=== PATIENT | female | born 1985 | race Caucasian/White ===

== ENCOUNTER 2017-11-18 19:18 | Emergency (ER) | payer OTHER ==
[~2017-11-18 19:18] MED LIST: ACET-704 PO
[2017-11-18 19:40] VITALS: BP 110/62
[2017-11-18] MEDS ORDERED: DOXY100T PO (20:26)
[2017-11-18] MEDS ORDERED: GUAI118L13 PO (20:26)
[2017-11-18] MEDS ORDERED: ALBU6.7H IH (20:26)
--- NOTE | 2017-11-18 20:28 | PHYS DOC ---
General Chief Complaint: COUGH Stated Complaint: COUGH Time Seen by MD: 19:39 Source: patient Exam Limitations: no limitations Problems: History of Present Illness Initial Comments Patient is a 32-year-old female who comes in the ED complaining of cough and right sided chest pain. Patient states that for the past few days she's had nonproductive cough with some chills, she says that she's had some violent coughing spells and feels she may have pulled a muscle. She states she has pain behind her right breast which is very localized, denies anterior left-sided chest pain no arm or neck symptoms no associated diaphoresis or nausea vomiting. She has felt overall ill denies any measured fevers at home however temperature is 100.9 here in the emergency department other vital signs are stable. Patient continues to smoke cigarettes she denies any shortness of breath or immunocompromise status and no hemoptysis. Chest x-ray and influenza swab order on arrival. Timing/Duration: getting worse, other Severity: moderate Modifying Factors: improves with other Associated Symptoms: chest pain, cough, fever/chills, malaise Allergies: Coded Allergies: No Known Drug Allergies (Unverified , 08/28/15) Past Medical History Medical History: no pertinent history Surgical History: tonsillectomy, other Family History Significant Family History: no pertinent family hx Social History Smoker: cigarettes Alcohol: occasionally Drugs: none Review of Systems Constitutional: see HPI Respiratory: see HPI Cardiovascular: see HPI, denies palpitations, denies syncope Gastrointestinal: denies diarrhea, denies nausea, denies vomiting Genitourinary: denies dysuria, denies frequency, denies hematuria Musculoskeletal: denies back pain, denies joint swelling, denies neck pain Psychiatric/Neurological: denies headache, denies numbness, denies paresthesia Hematologic/Lymphatic: denies blood clots, denies easy bleeding, denies easy bruising Physical Exam General Appearance: WD/WN, no apparent distress Ear, Nose, Throat: hearing grossly normal, normal ENT inspection Neck: non-tender, supple Respiratory: chest non-tender, no respiratory distress, other (rhonchi at the right lower lobe) Cardiovascular: normal peripheral pulses, regular rate, rhythm Gastrointestinal: non tender, soft Back: no CVA tenderness, no vertebral tenderness Extremities: non-tender, normal inspection, no pedal edema Neurologic/Psychiatric: union representative II-XII nml as tested, no motor/sensory deficits, alert, oriented x 3 Orders, Labs, Meds Chest x-ray PA and lateral: Right lower lobe infiltrate, cardiac silhouette and mediastinal structures appear normal interpreted by me. Influenza A and B are negative I discussed signs and symptoms to monitor as well as indications for urgent return to the department. Discussed smoking cessation and the departure instructions [id number] and provided them in written format. Discussed prescription and efzx-bum-[id number] medications and the patient's questions were answered she expressed agreement and understanding of treatment plan. Departure Time of Disposition: 20:26 Disposition: 01 HOME, SELF-CARE Diagnosis: right lower lobe pneumonia, tobaccoism Condition: GOOD Patient Instructions: Pneumonia, Adult, [id number], Smoking Cessation, Tips For Success Additional Instructions: Please review the patient education materials given by ED staff. Stop smoking seek medical assistance if necessary. Aggressive hydration with Gatorade or water. Mksi-gce-uqhniku Tylenol and ibuprofen as needed. Prescription: Guaifenesin with codeine syrup, doxycycline, albuterol MDI You will need to follow-up with her doctor to ensure this infection has completely cleared. ED staff can provide you a list of doctors to accept walk-in appointments, follow-up in 7-10 days for recheck. Return to ED with new or changing symptoms. DIYA SANCHEZ DO Nov 18, 2017 20:28
[2017-11-18] MEDS ORDERED: DOXYCYCLINE HYCLATE 100 MG TABLET PO ONE (20:45)
--- NOTE | 2017-11-19 08:07 | RAD ---
Chest, 2 views, 11/18/2017: History: Cough, right-sided chest pain The heart size and pulmonary vascularity are normal. There are mild bibasilar pulmonary opacities with dominant involvement of the right middle lobe. The upper lung banda are clear. There is no evidence of pleural fluid. IMPRESSION: Mild patchy bibasilar atelectasis and/or pneumonitis.
== END 2017-11-18 20:44 | disposition home or self-care (01) ==
LOC: ER 19:18
DX: J18.1 Lobar pneumonia, unspecified organism (principal); F17.210 Nicotine dependence, cigarettes, uncomplicated
CPT/HCPCS: 71046; 99284

== ENCOUNTER 2017-12-05 11:00 | Inpatient (IN) | payer OTHER ==
[~2017-12-05] VITALS: Ht 162.6 cm; Wt 81.2 kg
[~2017-12-05 11:00] MED LIST changes: +ALBU6.7H IH; +DOXY100T PO; +GUAI118L13 PO
[2017-12-05 11:39] LABS: BASO # 0.2 x10^3/uL (0.0-0.2); BASO % 1 % (0-3); EOS % 0 % (0-3); HEMATOCRIT 38.1 % (36.0-47.0); HEMOGLOBIN 12.7 g/dL (12.0-15.5); LYMPH # 0.4 x10^3/uL (1.0-4.8); LYMPH % 2 % (24-48); MEAN CORPUSCULAR HEMOGLOBIN 29 pg (25-35); MEAN CORPUSCULAR HGB CONC 33 g/dL (31-37); MEAN CORPUSCULAR VOLUME 87 fL (79-100); MONO # 0.5 x10^3/uL (0.0-1.1); MONO % 3 % (0-9); NEUT # 17.8 x10^3uL (1.8-7.7); NEUT % 94 % (31-73); PLATELET COUNT 135 x10^3/uL (140-400); RED CELL DISTRIBUTION WIDTH 15.2 % (11.5-14.5)
[2017-12-05 11:49] LABS: ALBUMIN 2.9 g/dL (3.4-5.0); ALBUMIN/GLOBULIN RATIO 0.8 (1.0-1.7); CALCIUM 8.6 mg/dL (8.5-10.1); CREATININE 0.8 mg/dL (0.6-1.0); GFR 83.7; POTASSIUM 3.5 mmol/L (3.5-5.1); TOTAL BILIRUBIN 0.7 mg/dL (0.2-1.0); TOTAL PROTEIN 6.4 g/dL (6.4-8.2)
--- NOTE | 2017-12-05 11:49 | RAD ---
Abdominal series 12/05/2017 Indication: Abdominal pain Comparison study: 2 views of the chest November 18, 2017 Findings: No pneumothorax or effusion or focal infiltrate is seen. Heart size is normal. No gross pneumoperitoneum is identified. Mildly increased stool seen throughout the colon. Correlate with evidence of constipation. The bowel gas pattern is nonspecific and nonobstructive. Changes of chronic sacroiliitis are seen on the right. No acute osseous abnormality is identified. Impression: 1. No radiographic evidence of acute cardiopulmonary abnormality. 2. Increased stool within the colon. Correlate with evidence of constipation. 3. Evidence of chronic right-sided sacroiliitis
[2017-12-05] MEDS ORDERED: IV NORMAL SALINE 1,000ML 1,000 ML IV SCH (12:01)
--- NOTE | 2017-12-05 12:06 | PHYS DOC ---
Past History Past Medical History: No Pertinent History Past Surgical History: , Other Smoking: Cigarettes, Less than 1pk/day Alcohol Use: Occasionally Drug Use: Methamphetamine Adult General Chief Complaint Chief Complaint: ABDOMINAL PAIN [facility] HPI This patient is a non 32-year-old female with a known history of prior C -section presents with abdominal pain that began at 6 PM last night. She describes the abdominal pain is diffuse crampy throughout her abdomen with no localization of the right lower quadrant. She denies any UTI symptoms, denies any vaginal bleeding or discharge denies any history of STDs. She's had hard constipated stool and nausea but no vomiting. She denies fevers or chills she said the pain is 9 of 10 at rest 10 of 10 with walking and movement. It does not radiate to her back does not change with food that she has no appetite at this time. She denies any recent sick contacts but has been treated for pneumonia within the last 3 weeks with antibiotics. She denies any travel outside the country, handling of poultry, handling of reptiles or eating raw foods. Acute pancreatitis. Appendicitis. Acute hepatitis. Peptic ulcer disease. Nonulcer dyspepsia. Irritable bowel disease. Functional gallbladder disorder. Sphincter of Oddi dysfunction. Diseases of the right kidney. Right-sided pneumonia. Hazp-Uvxp-Kvetpp syndrome Subhepatic or intraabdominal abscess. Perforated viscus. Cardiac ischemia. Black spider envenomation UTI, pyonephritis, kidney stone, abdominal aneurysm, ectopic considered as differential diagnosis Review of Systems Review of Systems Constitutional: Denies fever or chills [] Eyes: Denies change in visual acuity, redness, or eye pain [] HENT: Denies nasal congestion or sore throat [] Respiratory: Denies cough or shortness of breath [] Cardiovascular: No additional information not addressed in HPI [] GI: General this complaint of abdominal pain with nausea but no vomiting no diarrhea constipation is positive : Denies dysuria or hematuria [] Musculoskeletal: Denies back pain or joint pain [] Integument: Denies rash or skin lesions [] Neurologic: Denies headache, focal weakness or sensory changes [] Endocrine: Denies polyuria or polydipsia [] All other systems were reviewed and found to be within normal limits, except as documented in this note. Allergies Allergies Allergies Coded Allergies Type Severity Reaction Last Updated Verified No Known Drug Allergies 08/28/15 No Physical Exam Physical Exam Other vital signs recorded on the chart at this time patient did be mildly tachycardic mildly low-grade fever mildly tachypnea Constitutional: Well developed, well nourished, patient is obvious uncomfortable nontoxic in appearance[] HENT: Normocephalic, atraumatic, bilateral external ears normal, oropharynx dry mucous membranes no erythema, no oral exudates, nose normal. [] Eyes: PERRLA, EOMI, conjunctiva normal, no discharge. [] Neck: Normal range of motion, no tenderness, supple, no stridor. [] Cardiovascular: Tachycardia noted with regular rhythm no murmurs, rubs or rubs Lungs & Thorax: Bilateral breath sounds clear to auscultation [] Abdomen: Diffuse abdominal sounds hyperactive soft enters to palpation in all quadrants no specific Shah's or McBurney's point tenderness to palpation patient does have some voluntary guarding. No Martell Baker sign noted Skin: Warm, dry, no erythema, no rash. [] Back: No tenderness, no CVA tenderness. [] Extremities: No tenderness, no cyanosis, no clubbing, ROM intact, no edema. [] Neurologic: Alert and oriented X 3, normal motor function, Psychologic: She does seem somewhat anxious Current Patient Data Vital Signs Vital Signs Date Time Temp Pulse Resp B/P (MAP) Pulse Ox O2 Delivery O2 Flow Rate FiO2 12/05/17 11:00 99.5 115 22 98 Room Air Lab Results Laboratory Tests Test 12/05/17 11:22 White Blood Count 19.0 x10^3/uL (4.0-11.0) H Red Blood Count 4.40 x10^6/uL (3.50-5.40) Hemoglobin 12.7 g/dL (12.0-15.5) Hematocrit 38.1 % (36.0-47.0) Mean Corpuscular Volume 87 fL (79-100) Mean Corpuscular Hemoglobin 29 pg (25-35) Mean Corpuscular Hemoglobin Concent 33 g/dL (31-37) Red Cell Distribution Width 15.2 % (11.5-14.5) H Platelet Count 135 x10^3/uL (140-400) L Neutrophils (%) (Auto) 94 % (31-73) H Lymphocytes (%) (Auto) 2 % (24-48) L Monocytes (%) (Auto) 3 % (0-9) Eosinophils (%) (Auto) 0 % (0-3) Basophils (%) (Auto) 1 % (0-3) Neutrophils # (Auto) 17.8 x10^3uL (1.8-7.7) H Lymphocytes # (Auto) 0.4 x10^3/uL (1.0-4.8) L Monocytes # (Auto) 0.5 x10^3/uL (0.0-1.1) Eosinophils # (Auto) 0.0 x10^3/uL (0.0-0.7) Basophils # (Auto) 0.2 x10^3/uL (0.0-0.2) Platelet Estimate Pending Sodium Level 136 mmol/L (136-145) Potassium Level 3.5 mmol/L (3.5-5.1) Chloride Level 100 mmol/L (98-107) Carbon Dioxide Level 26 mmol/L (21-32) Anion Gap 10 (6-14) Blood Urea Nitrogen 9 mg/dL (7-20) Creatinine 0.8 mg/dL (0.6-1.0) Estimated GFR (Cockcroft-Gault) 83.7 BUN/Creatinine Ratio 11 (6-20) Glucose Level 116 mg/dL (70-99) H Calcium Level 8.6 mg/dL (8.5-10.1) Total Bilirubin 0.7 mg/dL (0.2-1.0) Aspartate Amino Transferase (AST) 12 U/L (15-37) L Alanine Aminotransferase (ALT) 17 U/L (14-59) Alkaline Phosphatase 78 U/L (46-116) Total Protein 6.4 g/dL (6.4-8.2) Albumin 2.9 g/dL (3.4-5.0) L Albumin/Globulin Ratio 0.8 (1.0-1.7) L EKG EKG [] Radiology/Procedures Radiology/Procedures [] [address] [address] IMAGING REPORT Signed PATIENT: KATHRYN LUNDBERG ACCOUNT: [id number] : 1985 LOCATION: ER AGE: 32 SEX: F EXAM STATUS: REG ER ORD. PHYSICIAN: RONALD JERNIGAN MD REASON: diffuse ab pain PROCEDURE: CT ABD PELV W/ IV CONTRST ONLY Examination: CT of the abdomen pelvis were performed with IV contrast History: History of abdominal pain. Comparison: None available Technique: Axial CT images of the abdomen is performed with IV contrast. Coronal and sagittal reformats are performed PQRS Compliance Statement: One or more of the following individualized dose reduction techniques were utilized for this examination: 1. Automated exposure control 2. Adjustment of the mA and/or kV according to patient size 3. Use of iterative reconstruction technique Findings: The visualized bibasal lungs are clear. No evidence of free air identified in the abdomen. The visualized liver, spleen, adrenals grossly appears unremarkable. The gallbladder is mildly distended. Stomach is mildly distended. The common bile duct appears mildly prominent measuring 7 mm in transverse dimension. The visualized pancreas grossly appears unremarkable. Small bowel is nondilated. Urinary bladder is mildly distended. The visualized appendix grossly appears unremarkable. Moderate amount of feces and gas noted throughout the colon No evidence of lytic bony destructive lesion. Bilateral kidneys enhance symmetrically. There is mild fat stranding identified in the mesentery particularly in the lower abdomen, best visualized on series 2 image #64 there is questionable minimal enhancement of the small bowel loop. Multiple cystic structure identified in the bilateral ovaries. Impression: 1. Minimal fat stranding identified in the mesentery particularly in the lower abdomen, nonspecific inflammation. Obvious etiology is not identified. There is some minimal enhancement of the wall of the small bowel in the left lower quadrant. Enteritis is not completely excluded. 2. Cystic structures identified in the bilateral ovaries probably follicles. Ultrasound pelvis may be useful. 3. Minimal prominent appearing common bile duct. Correlate with liver function tests. DICTATED AND SIGNED BY: SHANDRA VANCE MD DATE: 12/05/17 0726 CC: RONALD JERNIGAN MD; PCP,NO ~ Course & Med Decision Making Course & Med Decision Making Pertinent Labs and Imaging studies reviewed. (See chart for details) []Patient percent with diffuse abdominal pain CBC, CMP, lipase, urinalysis and test ordered. Patient acute abdominal series ordered upon arrival. Time is now 12:06 PM acute abdominal series does not show any specific air fluid levels, signs of bowel obstruction or free air. Patient's CBC demonstrates an elevated white blood cell count of 19,000 with left shift CMP is unremarkable Times now [address] scan reveals some mild mesenteric fat stranding without specific diverticular disease. Given patient's history of abdominal pain with subjective fevers and elevated white blood cell count this may represent early diverticular disease, there is no history of Crohn's, UC, or IBS at this time. Patient still having significant issues with pain and nausea. Start patient on Cipro and Flagyl and consult GI for possible evaluation EGD and colonoscopy Child And Adolescent Therapist note: Dr. Jimenez Child And Adolescent Therapist called at of the service service called at 1:15 PM Consult called back at 1:15 PM Discussed the case I presented and they agreed with admission. Time of acceptance 1:15 p.m. "I have assessed this patient clinically and believe that their condition requires an admission to the hospital. After consulting the admitting physician about this case, they have asked that I admit this patient to their service as an inpatient based on the clinical presentation and my impression." Dragon Disclaimer Dragon Disclaimer This electronic medical record was generated, in whole or in part, using a voice recognition dictation system. Departure Departure: Impression: Primary Impression: Abdominal pain Disposition: ADMITTED INPATIENT Condition: GUARDED Referrals: PCP,NO (PCP) RONALD JERNIGAN MD Dec 05, 2017 12:06
[2017-12-05] MEDS ORDERED: IOHEXOL 300 MG/ML 75 ML VIAL. IV ONE (12:15)
[2017-12-05] MEDS ORDERED: HYDROmorphone PF 1 MG/ML DISP.SYRIN IV/SQ PRN (12:15)
[2017-12-05] MEDS ORDERED: 0.9 % SODIUM CHLORIDE 10 ML DISP.SYRIN. IV PRN (12:15)
[2017-12-05] MEDS ORDERED: ONDANSETRON PF 4 MG/2 ML VIAL. IV ONE (12:15)
[2017-12-05 12:19] LABS: % BANDS 14 % (0-9); % LYMPHS 5 % (24-48); % MONOS 6 % (0-10); % SEGS 75 % (35-66)
[2017-12-05 12:20] LABS: PLATELET CLUMP PRESENT; PLT ESTIMATE ADEQUATE (ADEQUATE); TOXIC GRANULATION SLIGHT
--- NOTE | 2017-12-05 12:54 | RAD ---
Examination: CT of the abdomen pelvis were performed with IV contrast History: History of abdominal pain. Comparison: None available Technique: Axial CT images of the abdomen is performed with IV contrast. Coronal and sagittal reformats are performed PQRS Compliance Statement: One or more of the following individualized dose reduction techniques were utilized for this examination: 1. Automated exposure control 2. Adjustment of the mA and/or kV according to patient size 3. Use of iterative reconstruction technique Findings: The visualized bibasal lungs are clear. No evidence of free air identified in the abdomen. The visualized liver, spleen, adrenals grossly appears unremarkable. The gallbladder is mildly distended. Stomach is mildly distended. The common bile duct appears mildly prominent measuring 7 mm in transverse dimension. The visualized pancreas grossly appears unremarkable. Small bowel is nondilated. Urinary bladder is mildly distended. The visualized appendix grossly appears unremarkable. Moderate amount of feces and gas noted throughout the colon No evidence of lytic bony destructive lesion. Bilateral kidneys enhance symmetrically. There is mild fat stranding identified in the mesentery particularly in the lower abdomen, best visualized on series 2 image #64 there is questionable minimal enhancement of the small bowel loop. Multiple cystic structure identified in the bilateral ovaries. Impression: 1. Minimal fat stranding identified in the mesentery particularly in the lower abdomen, nonspecific inflammation. Obvious etiology is not identified. There is some minimal enhancement of the wall of the small bowel in the left lower quadrant. Enteritis is not completely excluded. 2. Cystic structures identified in the bilateral ovaries probably follicles. Ultrasound pelvis may be useful. 3. Minimal prominent appearing common bile duct. Correlate with liver function tests.
[2017-12-05] MEDS ORDERED: CIPROFLOXACIN 400MG PREMIX 200 ML IV ONE (13:30)
[2017-12-05] MEDS ORDERED: ONDANSETRON PF 4 MG/2 ML VIAL. IV PRN (13:30)
[2017-12-05] MEDS: MORPHINE SULFATE 4 MG/ML DISP.SYRIN. IV PRN ×3 (13:39→21:19)
[2017-12-05] MEDS ORDERED: MAGNESIUM CITRATE 296 ML SOLUTION. PO ONE ×2 (13:45→21:00)
[2017-12-05 14:40] LABS: BACTERIA,URINE MOD /HPF (0-FEW); BILIRUBIN,URINE NEG (NEG); CLARITY,URINE CLEAR; COLOR,URINE YELLOW; GLUCOSE,URINE NEG (NEG); NITRITE,URINE NEG (NEG); RBC,URINE 0 /HPF (0-2); UROBILINOGEN,URINE 2 mg/dL (0.2 mg/dL); WBC,URINE RARE /HPF (0-4)
[2017-12-05 14:41] LABS: SQUAMOUS EPITHELIAL CELL,UR MOD /LPF
[2017-12-05 16:12] VITALS: BP 128/80
[2017-12-05] MEDS: IV NORMAL SALINE 1,000ML 1,000 ML IV SCH ×2 (17:51→22:57)
[2017-12-05] MEDS: KETOROLAC 30 MG/ML VIAL. IV PRN (18:26)
[2017-12-05 19:42] VITALS: BP 105/66
[2017-12-05] MEDS: LACTOBACILLUS RHAMNOSUS GG 1 CAPSULE. PO SCH (21:11)
[2017-12-05] MEDS: CIPROFLOXACIN 400MG PREMIX 200 ML IV SCH (21:11)
[2017-12-05 23:25] VITALS: BP 125/79
[2017-12-06] MEDS: MORPHINE SULFATE 4 MG/ML DISP.SYRIN. IV PRN ×2 (03:00→06:13)
[2017-12-06] MEDS: KETOROLAC 30 MG/ML VIAL. IV PRN (05:19)
[2017-12-06] MEDS: IV NORMAL SALINE 1,000ML 1,000 ML IV SCH (05:30)
[2017-12-06 05:44] VITALS: BP 117/76
[2017-12-06] MEDS ORDERED: SODIUM PHOSPHATES 19/7GM 133 ML ENEMA. PR PRN (08:00)
[2017-12-06] MEDS ORDERED: SODIUM PHOSPHATES 19/7GM 133 ML ENEMA. PR ONE (08:15)
[2017-12-06] MEDS: CIPROFLOXACIN 400MG PREMIX 200 ML IV SCH (08:36)
[2017-12-06] MEDS: LACTOBACILLUS RHAMNOSUS GG 1 CAPSULE. PO SCH (08:39)
[2017-12-06] MEDS ORDERED: PNEUMOC CONJ VACC 23-VALENT 0.5 ML VIAL. VAX IM ONE (09:00)
[2017-12-06] MEDS ORDERED: FLU VACC QS2017-18 (36MOS+)/PF 0.5 ML SYRINGE. VAX IM ONE (09:00)
[2017-12-06] MEDS ORDERED: PNEUMOC CONJ VACC 13-VALENT 0.5 ML DISP.SYRIN. VAX IM ONE (09:00)
[2017-12-06] MEDS ORDERED: BISACODYL 10 MG SUPP.RECT PR PRN (10:00)
[2017-12-06] MEDS ORDERED: BISACODYL 10 MG SUPP.RECT PR ONE (10:15)
[2017-12-06 10:16] LABS: BASO % 0 % (0-3); EOS # 0.1 x10^3/uL (0.0-0.7); EOS % 1 % (0-3); HEMATOCRIT 35.6 % (36.0-47.0); LYMPH # 1.1 x10^3/uL (1.0-4.8); LYMPH % 8 % (24-48); MEAN CORPUSCULAR HEMOGLOBIN 29 pg (25-35); MEAN CORPUSCULAR HGB CONC 34 g/dL (31-37); MEAN CORPUSCULAR VOLUME 87 fL (79-100); MONO # 0.4 x10^3/uL (0.0-1.1); MONO % 3 % (0-9); NEUT # 11.5 x10^3uL (1.8-7.7); NEUT % 88 % (31-73); PLATELET COUNT 125 x10^3/uL (140-400); WHITE BLOOD COUNT 13.1 x10^3/uL (4.0-11.0)
[2017-12-06 10:17] LABS: ALBUMIN 2.6 g/dL (3.4-5.0); ALBUMIN/GLOBULIN RATIO 0.8 (1.0-1.7); CALCIUM 8.7 mg/dL (8.5-10.1); GFR 64.7; POTASSIUM 3.5 mmol/L (3.5-5.1); TOTAL BILIRUBIN 0.3 mg/dL (0.2-1.0)
[2017-12-06 10:21] VITALS: BP 101/69
[2017-12-06] MEDS ORDERED: METR500T PO (12:43)
[2017-12-06] MEDS ORDERED: CIPR500T94 PO (12:43)
--- NOTE | 2017-12-06 22:08 | DS ---
DATE OF DISCHARGE: 12/06/2017 DISCHARGE DIAGNOSES: 1. Enteritis. 2. Sepsis. 3. Moderate protein calorie malnutrition. 4. Tobacco use disorder. 5. Constipation. HOSPITAL COURSE: This is a 32-year-old female, who was admitted through the Emergency Room, where she presented with abdominal pain, which started at 6:00 p.m. on 12/04/2017. The pain was crampy, right lower quadrant. She felt the urge to go to the bathroom and was unable to, also felt quite constipated. She was found to have an elevated white count and some evidence of enteritis and inflammation in her colon and was admitted. PAST MEDICAL HISTORY: Basically negative. PAST SURGICAL HISTORY: . HABITS: Tobacco, less than a 1 pack per day. Alcohol occasionally. Some drug use with methamphetamine. SOCIAL SITUATION: The patient states that she had been living at her grandmother's and now is not. Her children have been placed in foster care at the moment, and she needs to be there today for a court appointed visit. REVIEW OF SYSTEMS: As per HPI, constipation and abdominal pain. OBJECTIVE: VITAL SIGNS: Blood pressure 117/76, pulse 99, temperature 98.2, pulse ox 98% on room air. Height 64 inches, weight 179 pounds. T-max was 99.5 on 12/05/2017. HEENT: The patient's hearing is normal. Nose is patent. Throat is clear. NECK: Supple, without adenopathy. LUNGS: Clear to auscultation. CARDIOVASCULAR: Regular rhythm and rate. ABDOMEN: Soft. Bowel sounds are positive. Mildly tender. EXTREMITIES: Without edema. Mood is anxious. LABORATORY DATA: Initial white count 19.0, with 14 bands. After antibiotics today came down to 13.1 and no bands and platelet count of 125,000. Chemistry: Albumin is 2.6. Lipase is low. CT scan of the abdomen and pelvis show a moderate amount of stool and gas throughout the colon, fat stranding with some inflammation consistent with enteritis. PLAN: The patient is improved. The patient had a large bowel movement today and is feeling a lot much much better. She was given a bottle of mag citrate as well as Fleet enema. She feels much much better. She insists that she has to leave today to go to her court-appointed meeting. She can be discharged on p.o. Cipro and Flagyl. She was strongly encouraged to pick these prescriptions up and take them. To quit smoking. To increase her fiber intake. She can come back if she is not feeling better, but cannot be discharged and then readmitted without going through the Emergency Room. LAURA RETANA DO DR: SAGRARIO/kala JOB#: [id number] / [id number]
== END 2017-12-06 14:00 | disposition home or self-care (01) | DRG 872 ==
LOC: ER 11:00 → 1 SOUTH 13:54
PROVIDERS: ADMIT Family Medicine; ATTEND Family Medicine
DX: A41.9 Sepsis, unspecified organism (principal); E44.0 Moderate protein-calorie malnutrition; Z68.30 Body mass index [BMI] 30.0-30.9, adult; K52.9 Noninfective gastroenteritis and colitis, unspecified; F15.90 Other stimulant use, unspecified, uncomplicated; K59.00 Constipation, unspecified; F17.210 Nicotine dependence, cigarettes, uncomplicated; N73.9 Female pelvic inflammatory disease, unspecified
CPT/HCPCS: 36415; 74022; 74177; 80053; 81001; 81025; 83690; 83735; 85007; 85025; 87086; 90686; 90732; J0744; J1170; J1885; J2270; J2405; J3490; Q9967; J7030